=== PATIENT | male | born 1970 | race Caucasian/White ===

== ENCOUNTER 2017-03-16 11:47 | Inpatient (IN) | payer OTHER ==
[~2017-03-16] VITALS: Ht 182.9 cm; Wt 86.2 kg
[2017-03-16] VITALS (7 sets, daily range): BP systolic 111–205; BP diastolic 70–105
[~2017-03-16 11:47] MED LIST: LAC PO; LEVAQUIN750 MG PO; LIPI10 PO; LOP50 PO; MIN10 PO; PRI20 PO; PROZ10 PO
[2017-03-16 12:37] LABS: BASOPHIL % 0.4 % (0-2)
[2017-03-16 12:43] LABS: PLATELET COUNT 124 x10^3mcL (130-400)
[2017-03-16 12:58] LABS: ALBUMIN 3.7 g/dL (3.4-5.0); BILIRUBIN TOTAL 0.9 mg/dL (0.20-1.00); CALCIUM 7.6 mg/dL (8.5-10.1); CARBON DIOXIDE 18.6 mmol/L (21-32); TOTAL PROTEIN, SERUM 7.3 g/dL (6.4-8.2)
[2017-03-16 13:02] LABS: CREATININE SERUM 12.2 mg/dL (0.7-1.3); POTASSIUM SERUM 6.8 mmol/L (3.5-5.1)
[2017-03-16 15:02] LABS: MAGNESIUM 2.6 mg/dL (1.8-2.4)
[2017-03-16 15:11] LABS: CHOLESTEROL/HDL RATIO 2.1
[2017-03-16 15:41] LABS: PHOSPHOROUS 13.7 mg/dL (2.5-4.9)
[2017-03-16 16:39] LABS: FREE T4 0.74 ng/dL (0.76-1.46); T4(THYROXINE) 6.7 ug/dL (4.7-13.3)
[2017-03-16 16:40] LABS: T3 TOTAL 0.6 ng/mL
[2017-03-17 05:40] VITALS: BP 179/81
[2017-03-17 06:19] LABS: BASOPHIL % 0.8 % (0-2)
[2017-03-17 06:23] LABS: PLATELET COUNT 105 x10^3mcL (130-400); RED CELL DISTRIBUTION WIDTH 18.1 % (11.5-14.5)
[2017-03-17 06:30] LABS: CARBON DIOXIDE 26.6 mmol/L (21-32); MAGNESIUM 2.2 mg/dL (1.8-2.4); PHOSPHOROUS 7.2 mg/dL (2.5-4.9); POTASSIUM SERUM 4.5 mmol/L (3.5-5.1)
[2017-03-17 06:40] LABS: CREATININE SERUM 7.8 mg/dL (0.7-1.3)
[2017-03-17 07:00] VITALS: BP 173/84
[2017-03-17 08:38] LABS: AMPHETAMINE QUAL UR NONE DETECTED (NEG <=1000)
[2017-03-17 09:04] LABS: microscopic required? YES; urine erythrocyte 1+ (NEGATIVE)
[2017-03-17 09:48] VITALS: BP 183/88
== END 2017-03-17 12:10 | disposition left against medical advice (07) | DRG 194 ==
LOC: ED 11:47 → DU 14:13
PROVIDERS: Emergency Medicine; Family Medicine; ADMIT Family Medicine
DX: I13.2 Hypertensive heart and chronic kidney disease with heart failure and with stage 5 chronic kidney disease, or end stage renal disease (principal); N17.0 Acute kidney failure with tubular necrosis; J96.00 Acute respiratory failure, unspecified whether with hypoxia or hypercapnia; I50.43 Acute on chronic combined systolic (congestive) and diastolic (congestive) heart failure; N18.6 End stage renal disease; E87.1 Hypo-osmolality and hyponatremia; D63.1 Anemia in chronic kidney disease; E87.5 Hyperkalemia; E83.41 Hypermagnesemia; K74.60 Unspecified cirrhosis of liver; Z99.2 Dependence on renal dialysis; Z91.15 Patient's noncompliance with renal dialysis; F17.210 Nicotine dependence, cigarettes, uncomplicated
CPT/HCPCS: 80307; 82962; 83880; 84439; 94150; J0360; J3490; J7030; J7613; J7620; J7626; Q0092